=== PATIENT | male | born 1985 | race Caucasian/White ===

== ENCOUNTER 2019-03-10 17:05 | Emergency (ER) | payer BC ==
[2019-03-10] MEDS ORDERED: Morphine 10 MG/ML Syringe IVPUSH ONE (17:32)
[2019-03-10] MEDS ORDERED: Ondansetron 4 MG/2 ML SDV IVPUSH ONE (17:54)
--- NOTE | 2019-03-10 18:23 | EDM.PDOC ---
ED [facility] GENERAL MEDICAL PROBLEM - General Chief Complaint: Back Pain or Injury Stated Complaint: BACK PAIN Time Seen by Provider: 03/10/19 17:10 Source of Information: Reports: Patient History Limitations: Reports: No Limitations - History of Present Illness INITIAL COMMENTS - FREE TEXT/NARRATIVE: Patient is a 33-year-old male with no significant past medical history presenting with a chief complaint of low back pain and lower extremity weakness. Patient states he was bending over to pull up his coveralls when he felt a pop in his back, crumpled to the floor, experienced severe pain. Patient reports lower extremity weakness and inability to stand up after the event. EMS was called and transported the patient to the emergency department. Patient denies any loss of bladder control or any saddle paresthesias. Patient reports decreased sensation to the bilateral lower extremities as well as decreased strength with left worse than right. In addition to that documented in the HPI above, the additional ROS was obtained : Constitutional: Denies fevers or chills Eyes: Denies vision changes ENMT: Denies sore throat CV: Denies chest pain Resp: Denies SOB GI: Denies vomiting or diarrhea : Denies painful urination MSK: Denies recent trauma Skin: Denies new rashes Neuro: Per HPI Endocrine: Denies unexpected weight loss Heme: Denies bleeding disorders I have reviewed the triage vital signs Const: Well nourished, well developed, appears stated age Eyes: PERRL, no conjunctival injection HENT: NCAT, Neck supple without meningismus CV: RRR, Warm, well-perfused extremities RESP: CTAB, Unlabored respiratory effort GI: soft, non-tender, non-distended, no masses MSK: Midline spinal tenderness to palpation of the lumbar spine and area of L1- L2. No gross deformities appreciated Skin: Warm, dry. No rashes Rectal: Patient refused rectal exam. However patient was able to contract gluteal muscles bilaterally. Neuro: Right lower extremity demonstrates thigh strength of 3 out of 5. Plantar and dorsiflexion of the right foot 5 out of 5. Pain sensation is intact in the right lower extremity. Light touch is intact to the right lower extremity. Proprioception is intact in the right lower extremity. Left lower extremity demonstrates thigh strength of 2 out of 5. Plantar and dorsiflexion of the left foot is 3 out of 5. Pain sensation and light touch sensation is not intact in the foot or distal leg. Proprioception is not intact in the left foot. Psych: Appropriate mood and affect Assessment and plan Patient is a 33-year-old male with no significant past medical history. Patient presents with acute lower back pain with lower extremity weakness. Given the physical exam findings, his presentation is highly concerning for cord compression. MRI services are not available at this time nor is neurosurgical or spine services at this hospital. Patient needs emergent transfer to [facility] where he will be evaluated by the emergency department , channel specialist. Given the emergent nature as well as distance and time required to travel, was recommended the patient be [facility] for evaluation. Patient given pain medication in the emergency department and had basic labs drawn to be transferred as well. Back Pain Score (Numeric/FACES): 7 - Related Data Allergies Allergy/AdvReac Type Severity Reaction Status Date / Time No Known Allergies Allergy Verified 03/10/19 17:24 Home Meds: Home Meds FLUoxetine [PROzac] 40 mg PO DAILY 03/10/19 [History] Past Medical History Psychiatric History: Reports: Anxiety, Depression - Infectious Disease History Infectious Disease History: Reports: None Social & Family History - Family History Family Medical History: Noncontributory - Tobacco Use Smoking Status *Q: Light Tobacco Smoker Years of Tobacco use: 9 Packs/Tins Daily: 0.5 - Caffeine Use Caffeine Use: Reports: Coffee, Energy Drinks, Soda, Tea - Recreational Drug Use Recreational Drug Use: No ED ROS GENERAL - Review of Systems Review Of Systems: See Below ED EXAM,LOWER BACK PAIN/INJURY - Physical Exam Exam: See Below Course - Vital Signs Last Recorded V/S: Last Vital Signs Temp 36.2 C 03/10/19 17:25 Pulse 68 03/10/19 18:16 Resp 16 03/10/19 18:16 BP 141/94 H 03/10/19 18:16 Pulse Ox 98 03/10/19 18:16 - Orders/Labs/Meds Orders: Active Orders 24 hr Category Date Time Status TYPE AND SCREEN [BBK] Stat Lab 03/10/19 17:50 Received Labs: Laboratory Tests 03/10/19 03/10/19 Range/Units 17:50 17:50 WBC 3.90 L (4.0-11.0) K/uL RBC 5.18 (4.50-5.90) M/uL Hgb 15.3 (13.0-17.0) g/dL Hct 44.9 (38.0-50.0) % MCV 86.7 (80.0-98.0) fL MCH 29.5 (27.0-32.0) pg MCHC 34.1 (31.0-37.0) g/dL RDW Std Deviation 42.3 (28.0-62.0) fl RDW Coeff of Reji 13 (11.0-15.0) % Plt Count 243 (150-400) K/uL MPV 9.90 (7.40-12.00) fL Neut % (Auto) 59.0 (48.0-80.0) % Lymph % (Auto) 29.2 (16.0-40.0) % Giles % (Auto) 10.0 (0.0-15.0) % Eos % (Auto) 1.3 (0.0-7.0) % Baso % (Auto) 0.5 (0.0-1.5) % Neut # (Auto) 2.3 (1.4-5.7) K/uL Lymph # (Auto) 1.1 (0.6-2.4) K/uL Giles # (Auto) 0.4 (0.0-0.8) K/uL Eos # (Auto) 0.1 (0.0-0.7) K/uL Baso # (Auto) 0.0 (0.0-0.1) K/uL Nucleated RBC % 0.0 /100WBC Nucleated RBCs # 0 K/uL Sodium 142 (136-148) mmol/L Potassium 4.5 (3.5-5.1) mmol/L Chloride 106 (98-107) mmol/L Carbon Dioxide 26.2 (21.0-32.0) mmol/L BUN 13 (7.0-18.0) mg/dL Creatinine 1.2 (0.8-1.3) mg/dL Est Cr Clr Drug Dosing 90.41 mL/min Estimated GFR (MDRD) > 60.0 ml/min Glucose 111 H (74-106) mg/dL Calcium 8.9 (8.5-10.1) mg/dL Total Bilirubin 0.3 (0.2-1.0) mg/dL AST 18 (15-37) IU/L ALT 51 (14-63) IU/L Alkaline Phosphatase 69 (46-116) U/L Total Protein 7.4 (6.4-8.2) g/dL Albumin 3.9 (3.4-5.0) g/dL Globulin 3.5 (2.6-4.0) g/dL Albumin/Globulin Ratio 1.1 (0.9-1.6) Meds: Medications Discontinued Medications Generic Name Dose Route Start Last Admin Trade Name Nika PRN Reason Stop Dose Admin Morphine Sulfate 6 mg 03/10/19 17:32 03/10/19 18:06 Morphine IVPUSH 03/10/19 17:33 6 mg ONETIME ONE Administration Ondansetron HCl 4 mg 03/10/19 17:54 03/10/19 18:05 Zofran IVPUSH 03/10/19 17:55 4 mg ONETIME ONE Administration Departure - Departure Time of Disposition: 18:51 Disposition: DC/Tfer to Other 70 Clinical Impression: Cord compression - Discharge Information Referrals: PCP,Unknown [Primary Care Provider] - Forms: ED Department Discharge Additional Instructions: The following information is given to patients seen in the emergency department who are being discharged to home. This information is to outline your options for follow-up care. We provide all patients seen in our emergency department with a follow-up referral. The need for follow-up, as well as the timing and circumstances, are variable depending upon the specifics of your emergency department visit. If you don't have a primary care physician on staff, we will provide you with a referral. We always advise you to contact your personal physician following an emergency department visit to inform them of the circumstance of the visit and for follow-up with them and/or the need for any referrals to a consulting specialist. The emergency department will also refer you to a specialist when appropriate. This referral assures that you have the opportunity for follow-up care with a specialist. All of these measure are taken in an effort to provide you with optimal care, which includes your follow-up. Under all circumstances we always encourage you to contact your private physician who remains a resource for coordinating your care. When calling for follow-up care, please make the office aware that this follow-up is from your recent emergency room visit. If for any reason you are refused follow-up, please contact the [facility] Emergency Department at and asked to speak to the emergency department charge nurse. Sepsis Event Note - Evaluation Sepsis Screening Result: No Definite Risk - Focused Exam Vital Signs: Vital Signs Temp Pulse Resp BP Pulse Ox 03/10/19 18:16 68 16 141/94 H 98 03/10/19 17:52 68 18 123/79 98 03/10/19 17:25 36.2 C 69 18 151/85 H 95 Date Exam was Performed: 03/10/19 Time Exam was Performed: 18:42 - My Orders Last 24 Hours: My Active Orders 03/10/19 17:50 TYPE AND SCREEN [BBK] Stat - Assessment/Plan Last 24 Hours: My Active Orders 03/10/19 17:50 TYPE AND SCREEN [BBK] Stat
[2019-03-10 18:29] LABS: BLOOD UREA NITROGEN,BUN 13 mg/dL (7.0-18.0); CARBON DIOXIDE,CO2 26.2 mmol/L (21.0-32.0); CHLORIDE,CL 106 mmol/L (98-107); GLUCOSE RANDOM 111 mg/dL (74-106); POTASSIUM,K 4.5 mmol/L (3.5-5.1); SODIUM,NA 142 mmol/L (136-148)
== END 2019-03-10 18:26 | disposition other institution (70) ==
LOC: MW.ED 17:05
DX: G95.20 Unspecified cord compression (principal); F17.210 Nicotine dependence, cigarettes, uncomplicated
CPT/HCPCS: 36415; 80053; 85025; 86850; 86900; 86901; 96374; 96375; 99285; J2270; J2405